=== PATIENT | female | born 1970 | race Caucasian/White ===

== ENCOUNTER 2018-02-09 11:34 | Emergency (ER) | payer OTHER, SELFPAY ==
[2018-02-09 11:55] VITALS: BP 129/68; PULSE 68; RESP 18; TEMP 36.6; O2SAT 100
--- NOTE | 2018-02-09 13:28 | W.ED.GENAD ---
Discharge Plan Disposition Patient Disposition: HOME Condition: Good Discharge Details Chief Complaint: Allergic Clinical Impression: Contact dermatitis Primary Care Provider: BLAN[facility] ED Provider: Iam Costello Home Meds and New Rx's Prescriptions: New prednisone 20 mg tablet 40 mg PO DAILY Qty: 20 RF: 0 ranitidine HCl [Zantac] 150 mg tablet 150 mg PO BID Qty: 14 RF: 0 Discharge Instructions Referrals: [facility] Emergency Dept. [Outside] - Return if symptoms worsen Medical Decision Making Rash has appearance of contact dermatitis. Will treat with Prednisone,Zantac and continue Loratidine with Benadryl at night. Advised to return to ED if symptoms worsen otherwise with pcp when she gets [facility] to [facility] as [facility] scheduled. She agreed with POC. Scripts provided for Zantac and Prednisone. Lab Data Lab results reviewed: Yes I reviewed the patient's lab results. Lab results narrative: negative quick strep. HPI General Mode of arrival: ambulatory. Date/Time Provider Initiated Documentation: 02/09/18 12:28. Limitations to Documentation: no limitations. Information obtained by: patient. History of Present Illness 47 year old F presents to the emergency department with the chief complaint of rash , Quality is described as other (itching), Patient started experiencing this day(s) (4) HPI Narrative: 47 y/o female c/o rash for the last five days. She was on a cruise two weeks ago and believes she may have been stung by a jelly fish. She noted a rash to her anterior legs but resolved within 48 hours. She noticed the rash returned four days ago. Seems to worsen during the day when she is wearing pants. She has been taking two Benadryl at night and takes Claritin daily. She has noticed a scratchy throat over the last few days. Has not had any trouble swallowing or breathing. Denies fever, sob, or cp. Related Data Home Medications Medication Instructions Recorded Confirmed prednisone 40 mg PO DAILY #20 tab 02/09/18 ranitidine HCl [Zantac] 150 mg PO BID #14 tab 02/09/18 Previous Rx's Medication Instructions Recorded prednisone 40 mg PO DAILY #20 tab 02/09/18 ranitidine HCl [Zantac] 150 mg PO BID #14 tab 02/09/18 General Stated Complaint: Allergic JUAN: 3 Review of Systems Eyes Reports system reviewed and no additional complaints, except as docu ENT Denies dysphagia and Reports other (throat itching, with question of swelling) Cardiovascular Denies chest pain and Denies dyspnea Respiratory Denies cough, Denies dyspnea and Denies wheezing Gastrointestinal Denies dysphagia, Denies dyspepsia, Denies heartburn, Denies nausea and Denies vomiting Integumentary/Breasts Reports rash Allergic/Immunologic Denies wheezing Exam [facility] Head: normal to inspection Ears: hearing grossly normal bilaterally and TM's normal bilaterally General nose exam: external nose normal Face and sinus: normal facial exam Mouth: oral mucosae normal, lip normal, tongue normal, oropharynx normal, moist mucous membranes, no drooling and no muffled voice Teeth and gingiva: dentition normal Throat: posterior oropharynx normal and uvula midline Eyes General: appearance normal, both eyes and all related structures Eyelids: eyelids normal Neck Neck: normal visual inspection Thyroid: thyroid normal Lymphatic: no lymphadenopathy noted Resp Effort & Inspection: normal respiratory effort and able to speak in complete sentences Auscultation: clear to auscultation bilaterally Cardio Jugular venous pressure: no JVD Rate: regular rate Rhythm: regular rhythm Heart Sounds: S1 normal and S2 normal Skin General skin exam: turgor normal, no crusts, no ecchymosis, no erythema, no excoriation(s), no fluctuance, no induration, no mottling, no petechiae, no purpura and no pallor Rashes: rashes noted (to anterior legs covering the thigh. Diffuse papular rash. No erythema or lymphagitis. No inguinal adenopathy) Trauma: no lacerations or abrasions Wounds: no wounds Hair: normal Nails: normal Neuro General: alert, awake and oriented x3 Cognition: normal cognition Speech: speech normal Gait: normal gait Extrem General: normal to inspection, full ROM and normal capillary refill Psych Appearance: grossly normal and well kempt Mental Status: mental status grossly normal Speech and Movement: speech and movement normal Mood: congruent mood Affect: normal affect Attitude: cooperative Thought Process: normal Insight: insight good Judgment: judgment good Course Vital Signs Temperature 36.6 C 02/09/18 11:55 Pulse 68 02/09/18 11:55 Respiratory Rate 18 02/09/18 11:55 Blood Pressure 129/68 02/09/18 11:55 Pulse Oximetry 100 02/09/18 11:55 Temperature 36.6 C 02/09/18 11:55 Temperature Source Temporal Artery Scan 02/09/18 11:55 Pulse 68 02/09/18 11:55 Respiratory Rate 18 02/09/18 11:55 Blood Pressure 129/68 02/09/18 11:55 Pulse Oximetry 100 02/09/18 11:55 Oxygen Delivery Method Room Air 02/09/18 11:55 Oxygen Flow Rate 0 02/09/18 11:55 Pain Level 0 02/09/18 11:55 Lab/Test Results Lab/Test Results: POC Strep Test-LESLIE(Rapid) Start: 02/09/18 12:26 Freq: .Rapid Strep Test Status: Active Protocol: Document 02/09/18 12:29 ROLANDO (Rec: 02/09/18 12:29 ROLANDO [id number]) Strep test-LESLIE(Rapid)-POC POC-Strep test-LESLIE (Rapid) Negative POC-Strep test-LESLIE (Rapid) Negative
--- NOTE | 2018-02-09 13:49 | ED.GENADUL_ITS ---
Discharge Plan Disposition Patient Disposition: HOME Condition: Good Discharge Details Chief Complaint: Allergic Clinical Impression: Contact dermatitis Primary Care Provider: [facility],[place] ED Provider: Iam Costello Home Meds and New Rx's Prescriptions: New prednisone 20 mg tablet 40 mg PO DAILY Qty: 20 RF: 0 ranitidine HCl [Zantac] 150 mg tablet 150 mg PO BID Qty: 14 RF: 0 Discharge Instructions Referrals: [facility] Emergency Dept. [Outside] - Return if symptoms worsen Medical Decision Making Rash has appearance of contact dermatitis. Will treat with Prednisone,Zantac and continue Loratidine with Benadryl at night. Advised to return to ED if symptoms worsen otherwise with pcp when she gets [facility] to [facility] as [facility] scheduled. She agreed with POC. Scripts provided for Zantac and Prednisone. Lab Data Lab results reviewed: Yes I reviewed the patient's lab results. Lab results narrative: negative quick strep. HPI General Mode of arrival: ambulatory . Date/Time Provider Initiated Documentation: 02/09/18 12:28 . Limitations to Documentation: no limitations . Information obtained by: patient . History of Present Illness 47 year old F presents to the emergency department with the chief complaint of rash , Quality is described as other (itching), Patient started experiencing this day(s) (4) HPI Narrative: 47 y/o female c/o rash for the last five days. She was on a cruise two weeks ago and believes she may have been stung by a jelly fish. She noted a rash to her anterior legs but resolved within 48 hours. She noticed the rash returned four days ago. Seems to worsen during the day when she is wearing pants. She has been taking two Benadryl at night and takes Claritin daily. She has noticed a scratchy throat over the last few days. Has not had any trouble swallowing or breathing. Denies fever, sob, or cp. Related Data Home Medications Medication Instructions Recorded Confirmed prednisone 40 mg PO DAILY #20 tab 02/09/18 ranitidine HCl [Zantac] 150 mg PO BID #14 tab 02/09/18 Previous Rx's Medication Instructions Recorded prednisone 40 mg PO DAILY #20 tab 02/09/18 ranitidine HCl [Zantac] 150 mg PO BID #14 tab 02/09/18 General Stated Complaint: Allergic JUAN: 3 Review of Systems Eyes Reports system reviewed and no additional complaints, except as docu ENT Denies dysphagia and Reports other (throat itching, with question of swelling) Cardiovascular Denies chest pain and Denies dyspnea Respiratory Denies cough, Denies dyspnea and Denies wheezing Gastrointestinal Denies dysphagia, Denies dyspepsia, Denies heartburn, Denies nausea and Denies vomiting Integumentary/Breasts Reports rash Allergic/Immunologic Denies wheezing Exam [facility] Head: normal to inspection Ears: hearing grossly normal bilaterally and TM's normal bilaterally General nose exam: external nose normal Face and sinus: normal facial exam Mouth: oral mucosae normal, lip normal, tongue normal, oropharynx normal, moist mucous membranes, no drooling and no muffled voice Teeth and gingiva: dentition normal Throat: posterior oropharynx normal and uvula midline Eyes General: appearance normal, both eyes and all related structures Eyelids: eyelids normal Neck Neck: normal visual inspection Thyroid: thyroid normal Lymphatic: no lymphadenopathy noted Resp Effort & Inspection: normal respiratory effort and able to speak in complete sentences Auscultation: clear to auscultation bilaterally Cardio Jugular venous pressure: no JVD Rate: regular rate Rhythm: regular rhythm Heart Sounds: S1 normal and S2 normal Skin General skin exam: turgor normal, no crusts, no ecchymosis, no erythema, no excoriation(s), no fluctuance, no induration, no mottling, no petechiae, no purpura and no pallor Rashes: rashes noted (to anterior legs covering the thigh. Diffuse papular rash. No erythema or lymphagitis. No inguinal adenopathy) Trauma: no lacerations or abrasions Wounds: no wounds Hair: normal Nails: normal Neuro General: alert, awake and oriented x3 Cognition: normal cognition Speech: speech normal Gait: normal gait Extrem General: normal to inspection, full ROM and normal capillary refill Psych Appearance: grossly normal and well kempt Mental Status: mental status grossly normal Speech and Movement: speech and movement normal Mood: congruent mood Affect: normal affect Attitude: cooperative Thought Process: normal Insight: insight good Judgment: judgment good Course Vital Signs Temperature 36.6 C 02/09/18 11:55 Pulse 68 02/09/18 11:55 Respiratory Rate 18 02/09/18 11:55 Blood Pressure 129/68 02/09/18 11:55 Pulse Oximetry 100 02/09/18 11:55 Temperature 36.6 C 02/09/18 11:55 Temperature Source Temporal Artery Scan 02/09/18 11:55 Pulse 68 02/09/18 11:55 Respiratory Rate 18 02/09/18 11:55 Blood Pressure 129/68 02/09/18 11:55 Pulse Oximetry 100 02/09/18 11:55 Oxygen Delivery Method Room Air 02/09/18 11:55 Oxygen Flow Rate 0 02/09/18 11:55 Pain Level 0 02/09/18 11:55 Lab/Test Results Lab/Test Results: POC Strep Test-LESLIE(Rapid) Start: 02/09/18 12: 26 Freq: .Rapid Strep Test Status: Active Protocol: Document 02/09/18 12:29 ROLANDO (Rec: 02/09/18 12:29 ROLANDO [id number]) Strep test-LESLIE(Rapid)-POC POC-Strep test-LESLIE (Rapid) Negative POC-Strep test-LESLIE (Rapid) Negative
== END 2018-02-09 13:39 | disposition home or self-care (01) ==
PROVIDERS: Emergency Provider Nurse Practitioner Family
DX: L23.9 Allergic contact dermatitis, unspecified cause (principal)
CPT/HCPCS: 99283